=== PATIENT | female | born 1950 | race Caucasian/White ===

== ENCOUNTER → 2017-02-26 | Outpatient (CLI) | payer OTHER, MEDICARE | LOC: BHLMT 08:30 | PROVIDERS: ATTEND Internal Medicine Cardiovascular Disease | DX: R94.31 Abnormal electrocardiogram [ECG] [EKG] (principal); I50.9 Heart failure, unspecified | CPT/HCPCS: 78452; 93017; A9500 ==

== ENCOUNTER → 2017-04-09 | Day surgery (SDC) | payer OTHER, MEDICARE ==
[~2017-04-09] MED LIST: ASPIRIN EC 325 MG TAB PO ONE; DIAZEPAM 5 MG TAB PO ONE; FAMOTIDINE 20 MG TAB PO ONE; FAMOTIDINE 20 MG/NACL 50 ML IV ONE; FAMOTIDINE 20 MG/NACL/50 ML BAG IV ONE; HEPARIN 10,000 UNIT/10 ML MDV (1,000 UNIT/ML) ONE; IOPAMIDOL (ISOVUE-370) 150 ML BTL IV ONE; LIDOCAINE 1% 300 MG/30 ML SDV ONE; MIDAZOLAM 2 MG/2 ML VIAL ONE; NS 1,000 ML IV ONE; VERAPAMIL 5 MG/2 ML VIAL ONE; diphenhydrAMINE 25 MG CAP PO ONE; fentaNYL 100 MCG/2 ML INJ ONE; methylPREDNISolone SOD SUCC 125 MG/2 ML VIAL IVP ONE; methylPREDNISolone SOD SUCC 125 MG/2 ML VIAL ONE
--- NOTE | 2017-04-09 10:36 | CPEKG ---
Heart Rate: 77 RR Interval: 779 QRSD Interval: 96 QT Interval: 392 QTC Interval: 444 QRS [place]: -40 T Wave [place]: 89 EKG Severity - ABNORMAL ECG - EKG Impression: NSR EKG Impression: LEFT ANTERIOR FASCICULAR BLOCK Electronically Signed By: Lewis De La Paz 11-Apr-2017 13:06:00
[2017-04-09 10:53] LABS: PLATELET COUNT 240 10^3/uL (150-400)
[2017-04-09 11:00] LABS: INR 0.95 (0.83-1.16); PROTIME(PATIENT) 12.9 SEC (12.0-15.0)
--- NOTE | 2017-04-09 11:05 | PDHPUP ---
History & Physical Update H&P update statement: This history and physical update is based on an assessment of the patient which was completed after admission or registration (within 24 hours), but prior to the surgery/procedure. H&P update: H&P reviewed & patient examined, no change in patient's condition since H&P completed
--- NOTE | 2017-04-09 11:05 | PDPROPOC ---
Sedation Plan of Care Sedation Plan of Care: vital signs stable, mental status noted, patient educated of risks, benefits, alternatives, patient can tolerate sedation ASA Classification: ASA 2 Planned drugs: fentanyl, midazolam Mallampati Score: Class 2 Mallampati Reference Image: Patient passed 3-3-2 rule?: Yes
--- NOTE | 2017-04-09 12:53 | PDDXCAT ---
Diagnostic Cath Note - . Date: 04/09/17 Rn Hedis: Brain Indication: Class I/II angina, intolerance to med therapy or failure to respond - Procedure Access: right wrist Procedure: left heart catheterization, coronary angiography - Materials Left Heart Cath size: 4F Left Heart Cath materials: JL3.5, JR4.0 - Findings-Left Heart Catheterization LM: Short un-obstructed LAD: normal LCX: dominant: normal RCA: non dominant: Normal Complications: none Estimated blood loss: <50ml Closure method: TR Band Assessment: normal cors. Patient Problems: Problems Problem Status Onset Osteoarthritis of knee Acute
== END | disposition home or self-care (01) ==
LOC: FCATH 09:42
PROVIDERS: ATTEND Internal Medicine Interventional Cardiology
PROC: B2151ZZ Fluoroscopy of Left Heart using Low Osmolar Contrast (ICD-10-PCS; principal; 2017-04-09)
PROC: 4A023N7 Measurement of Cardiac Sampling and Pressure, Left Heart, Percutaneous Approach (ICD-10-PCS; principal; 2017-04-09)
PROC: B2111ZZ Fluoroscopy of Multiple Coronary Arteries using Low Osmolar Contrast (ICD-10-PCS; principal; 2017-04-09)
DX: E78.00 Pure hypercholesterolemia, unspecified (principal); I10 Essential (primary) hypertension; R93.1 Abnormal findings on diagnostic imaging of heart and coronary circulation
CPT/HCPCS: 93005; 93454; C1769; J1200; J1644; J2250; J2930; J3010; Q9967